=== PATIENT | female | born 1985 | race Caucasian/White ===

== ENCOUNTER 2017-07-22 11:02 | Day surgery (SDC) | payer BC ==
[2017-07-22] MEDS ORDERED: ZOFRAN IV PRN (14:37)
[2017-07-22] MEDS ORDERED: DILAUDID IV PRN (14:37)
[2017-07-22] MEDS ORDERED: DEMEROL IV PRN (14:37)
[2017-07-22] MEDS ORDERED: ANCEF/STERILE WATER 2 GM/20 ML IV NR (15:00)
[2017-07-22] MEDS ORDERED: LACTATED RINGERS 1,000 ML IV SCH (15:00)
[2017-07-22] MEDS ORDERED: VERSED IV NR (15:00)
[2017-07-22] MEDS ORDERED: DILAUDID ONE (15:07)
[2017-07-22] MEDS ORDERED: DIPRIVAN 10 MG/ML IV ONE (15:07)
[2017-07-22] MEDS ORDERED: XYLOCAINE MPF 2% ONE (15:07)
[2017-07-22] MEDS ORDERED: ZOFRAN ONE (15:37)
[2017-07-22] MEDS ORDERED: TORADOL ONE (15:37)
--- NOTE | 2017-07-22 16:07 | Short Stay Summary ---
Short Stay Documentation Date of service: 07/22/17 - History H&P: obtained from office - Allergies and Medications Current Medications: Allergies No Known Allergies Allergy (Verified 07/21/17 14:38) Home Medications Medication Instructions Recorded Confirmed Last Taken Type Ethinyl Estradiol/Drospirenone 1 each PO DAILY 07/21/17 07/22/17 07/21/17 22:00 History [[place]ith 28 Tablet] HYDROcodone/APAP 5-325 [[place] 1 each PO Q6HR PRN 07/21/17 07/22/17 07/21/17 02: 00 History 5/325] Sulfamethoxazole/Trimethoprim 1 each PO BID 07/21/17 07/22/17 07/19/17 09:00 History [Sulfamethoxazole-Tmp Ss Tablet] Tamsulosin [Flomax] 0.4 mg PO QDAY 07/21/17 07/22/17 07/21/17 22:30 History Active Medications Cefazolin Sodium (Ancef/Sterile Water 2 Gm/20 Ml) 2 gm IV PREOP NR Stop: 07/22/17 23:59 Hydromorphone HCl (Dilaudid) 0.5 mg IV Q10MIN PRN PRN Reason: Pain , Severe (7-10) Stop: 07/22/17 23:59 Lactated Ringer's (Lactated Ringers) 1,000 mls @ 100 mls/hr IV DIRECT [place] Last Admin: 07/22/17 15:02 Dose: 100 mls/hr Meperidine HCl (Demerol) 25 mg IV ONCE PRN PRN Reason: Shivering Stop: 07/22/17 23:59 Midazolam HCl (Versed) 2 mg IV PREOP NR Stop: 07/22/17 23:59 Last Admin: 07/22/17 15:02 Dose: 2 mg Ondansetron HCl (Zofran) 4 mg IV ONCE PRN PRN Reason: Nausea And Vomiting - Brief post op/procedure progress note Date of procedure: 07/22/17 Pre-op diagnosis: left upj stone 7mm Post-op diagnosis: same Procedure: left uret eswl Anesthesia: MAC Findings: good vis and frag Surgeon: TRISH ESPINOZA Estimated blood loss: minimal Pathology: none Condition: stable - Hospital course Hospital course: [facility] - Disposition Condition at discharge: Good Disposition: DC-01 TO HOME OR SELFCARE Short Stay Discharge Plan Activity: advance as tolerated Diet: advance as tolerated Follow up with: DIAN BILLY MD [Staff Physician] - 7 Days
[2017-07-22 17:00] VITALS: BP 108/59
--- NOTE | 2017-07-22 17:46 | Post Anesthesia Evaluation ---
- Post Anesthesia Evaluation Patient Participated: Yes Airway Patent: Yes Stable Respiratory Function: Yes Nausea/Vomiting: No Temp > 96.8F: Yes Pain Manageable: Yes Adequeate Hydration: No Anesthesia Complications: No
--- NOTE | 2017-07-22 19:07 | XRay Report ---
FINAL REPORT EXAM: XR ABDOMEN 1V AP HISTORY: RENAL STONE , PREOP LITHO will call TECHNIQUE: KUB was performed Comparison: None FINDINGS: Single view of the abdomen demonstrates air-filled mildly distended small bowel loops in the central abdomen. There is no definite radiopaque stone identified over either kidney. There is prominent right 1st and 2nd transverse process tips. There stool in the right lower quadrant. IMPRESSION: No definite radiopaque stone identified. Recommend obtaining prior imaging and comparing directly. This report could be addended. Moderate stool in the right lower quadrant.
--- NOTE | 2017-08-25 21:17 | Operative Report ---
PREOPERATIVE DIAGNOSIS: Left ureteropelvic junction 7 mm stone. POSTOPERATIVE DIAGNOSIS: Left ureteropelvic junction 7 mm stone. PROCEDURE: Left ureteral ESWL. ANESTHESIA: MAC. FINDINGS: Good visualization, fragmentation. SURGEON: Young Vernon M.D. ESTIMATED BLOOD LOSS: Minimal. PATHOLOGY: None. CONDITION: Stable. CLINICAL INDICATIONS: The patient with the stone, counseled on RCBA, antibiotics, SCDs. DESCRIPTION OF PROCEDURE: The patient was transferred to OR suite in supine position. Monitored anesthesia begun. Biplanar fluoroscopy was used to target the left stone within F2. Intermittent repositioning done as necessary. At the end of the procedure, there was some decrease in density of the stone. The patient was awakened and transferred to PACU in good and stable condition. JOB# [id number] ATS/NTS
== END 2017-07-22 11:03 | disposition home or self-care (01) ==
LOC: OR 11:02
PROVIDERS: ATTEND Urology
DX: N20.0 Calculus of kidney (principal); Z87.891 Personal history of nicotine dependence
CPT/HCPCS: 50590; 74018; 81025; J0690; J1170; J1885; J2175; J2250; J2405; J2704; J7120